=== PATIENT | male | born 1995 | race Caucasian/White ===

== ENCOUNTER 2016-12-03 12:29 | Emergency (ER) | payer BC ==
[2016-12-03 12:40] VITALS: BP 138/58; PULSE 74; RESP 18; TEMP 97.9; O2SAT 96
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
== END 2016-12-03 14:31 | disposition home or self-care (01) ==
DX: S93.412A Sprain of calcaneofibular ligament of left ankle, initial encounter (principal); V23.4XXA Motorcycle driver injured in collision with car, pick-up truck or van in traffic accident, initial encounter; Y92.410 Unspecified street and highway as the place of occurrence of the external cause; Y99.8 Other external cause status; Y93.89 Activity, other specified
CPT/HCPCS: L4386